=== PATIENT | female | born 1935 | race Caucasian/White ===

== ENCOUNTER 2024-12-06 12:19 | Inpatient (IN) | payer MEDICARE, OTHER, SELFPAY ==
[2024-12-06] VITALS (7 sets, daily range): BP systolic 145–166; BP diastolic 51–81; PULSE 65–79; RESP 14–18; TEMP 36.1–36.4; O2SAT 97–100; BMI 31.1
--- NOTE | ~2024-12-06 | XR_ITS ---
XR chest 1V portable Ordering provider: Darren Juan MD History: 89 years Female with . AMS . Comparison: None. FINDINGS: MEDIASTINUM: The cardiac silhouette is not enlarged. Prominent right hilum. LUNGS: No infiltrates, effusions or pneumothorax. OTHER: No free air under the diaphragm. Degenerative changes of the spine. IMPRESSION: No acute cardiopulmonary pathology. Reviewed, dictated and finalized at location A.
--- NOTE | ~2024-12-06 | CT_ITS ---
CT brain wo con Ordering provider: Darren Juan MD History: 89 years Female with . ALtered mental status . Comparison: June 03, 2006 Technique: CT of the head without contrast. Radiation reduction technique utilized.The dose-length pr oduct was 605.33 mGy-cm. FINDINGS: BRAIN PARENCHYMA AND CSF SPACES: Moderate leukoaraiosis and diffuse cortical atrophy. Moderate athero matous disease. No midline shift, mass effect or hemorrhage. The brain parenchyma and CSF spaces are otherwise normal. VISUALIZED PARANASAL SINUSES: Well aerated. MASTOIDS: Well aerated. BONES: The bones appear intact. SOFT TISSUES: Visualized nasopharynx is normal. Superficial soft tissues are normal. IMPRESSION: No acute intracranial findings. Reviewed, dictated and finalized at location A.
--- NOTE | ~2024-12-06 | MR_ITS ---
MR brain/brain stem wo/w con Ordering provider: Kamla Chacon MD History: 89 years Female with . TIA-suspected . Comparison: CT head performed yesterday. Technique: MRI brain was performed with and without contrast. 18 mL MultiHance was given IV. FINDINGS: BONES: Normal. CRANIOCERVICAL JUNCTION: normal. PITUITARY: Normal. MAJOR INTRACRANIAL VESSELS: Normal flow void. OPTIC NERVES AND CRANIAL NERVES VII AND VIII COMPLEXES: Grossly normal. BRAIN PARENCHYMA AND CSF SPACES: Mild nonspecific T2 white matter hyperintensities are seen in a vivian ateral periventricular and deep white matter distribution which are likely related to chronic ischemi c small vessel disease. Mild diffuse cortical atrophy. 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 The brainstem and cerebellum are normal. Multiple foci of susceptibility artifact is seen in the left upper frontal area and the left temporal lobe and terrie No extra axial fluid collections. Diffusion weighted and ADC mapping images reveal diffusion restriction the left cerebellar peduncle s uggestive of recent ischemia. No midline shift or mass effect. No abnormal contrast enhancement. PARANASAL SINUSES: Bilateral ethmoid sinus disease. MASTOIDS: Normal SUPERFICIAL/SURROUNDING SOFT TISSUES: Normal. IMPRESSION: 1. Highly suggestive lacunar acute infarct in the left cerebellar peduncle. Clinical correlation adv ised. 2. Multiple areas of susceptibility artifacts which may indicate old hemorrhagic changes versus calc ification. Tiny hemangiomas are less likely. Follow-up advised. 3. No abnormal enhancement. Reviewed, dictated and finalized at location A. IMPRESSION: 1. Highly suggestive lacunar acute infarct in the left cerebellar peduncle. Cl inical correlation advised. 2. Multiple areas of susceptibility artifacts which may indicate old hemorrhag ic changes versus calcification. Tiny hemangiomas are less likely. Follow-up ad vised. 3. No abnormal enhancement.
--- NOTE | 2024-12-06 12:21 | ECG_ITS ---
Test Date: 2024-12-06 12:54:23 Measurements Intervals [place] Rate: 68 P: 57 CO: 173 QRS: -21 QRSD: 101 T: 58 QT: 397 QTc: 424 Interpretive Statements SINUS RHYTHM VOLTAGE CRITERIA FOR LVH BASELINE ARTIFACT- II, III, AVR, AVL, AVF, V6 BORDERLINE ECG No previous ECG available for comparison Electronically Signed On 12-06-2024 13:00:48 CDT by Clyde Burnett D.O.
--- NOTE | 2024-12-06 12:27 | ED.NEUROSD ---
HPI - Neuro Symptoms/Deficit General Chief Complaint: Suspected CVA Stated Complaint: increased confusion, lethargic Time Seen by Provider: 12/06/24 12:27 Source: patient and EMS Mode of arrival: EMS History of Present Illness HPI Narrative: 89 years old white female, history of dementia, oriented times 2-3 as a baseline. Patient finished her breakfast today and set to watch TV at 9:00 a.m., intermittent napping, at 10:45 a.m. staff trying to get patient of the chair to walk to the bathroom and noticed that the patient slowly some words, and oriented to herself only. Patient currently on Eliquis Patient is asymptomatic, denying any complain. Related Data Home Medications ?Medication ?Instructions ?Recorded ?Confirmed ?Last Taken ?Type sertraline 100 mg tablet mg 06/28/19 Unknown History Allergies Allergy/AdvReac Type Severity Reaction Status Date / Time cyclobenzaprine Allergy Unknown Unknown Verified 06/28/19 10:01 hydrochlorothiazide Allergy Unknown SWELLING Unverified 10/03/08 11:45 triamterene Allergy Unknown SWELLING Unverified 10/03/08 11:45 hydrocodone AdvReac Unknown NAUSEA AND Unverified 10/03/08 11:45 HEADACHE Review of Systems Review of Systems: All systems reviewed & are unremarkable except as noted in HPI and below PMFSH Past Medical History Medical History History of depression Surgical History Surgical History History of appendectomy History of tonsillectomy History of hysterectomy Social History Social History Smoking status: Never smoker Gender identity (if verbalized by the patient): Female Exam Narrative: General appearance: Well-developed, well-nourished Skin: Normal color Head: Normocephalic, nontraumatic Eyes: Clear conjunctiva ENT: Oropharynx normal, ears normal, nose normal Neck: Supple, nontender Chest and respiratory: Airway patent, no respiratory distress, no accessory muscle use Heart: Regular rate/rhythm Abdomen: Soft, nontender, no organomegaly, quiet bowel sounds Vascular: Normal peripheral pulses, normal capillary refill. Musculoskeletal: Normal range of motion, nontender back Neurologic: Alert and oriented to her name only Course Vital Signs Vital signs: Vital Signs Temperature 36.4 C 12/06/24 12:32 Pulse Rate 70 12/06/24 12:32 Respiratory Rate 14 12/06/24 12:32 Blood Pressure 166/68 H 12/06/24 12:32 Pulse Oximetry 99 12/06/24 12:32 Oxygen Delivery Room Air 12/06/24 12:32 Temperature 36.4 C 12/06/24 13:11 Pulse Rate 65 12/06/24 13:12 Respiratory Rate 14 12/06/24 13:12 Blood Pressure 158/81 H 12/06/24 13:12 Pulse Oximetry 98 12/06/24 13:16 Oxygen Delivery Room Air 12/06/24 13:16 MDM - Neuro Symptoms/Deficit MDM Narrative Medical decision making narrative: Patient came to the ED with possible TIA/CVA Vital signs showing blood pressure 166/68 otherwise within normal limit Physical examination showed stroke scale is 1, patient is awake, oriented to her name only Differential diagnosis include TIA, CVA, electrolyte imbalance, dehydration, urinary tract infection, pneumonia Blood workup today includes CBC, CMP, troponin showed glucose of 296, otherwise insignificant abnormality EKG on arrival showed normal sinus rhythm at 68 beats per minute, voltage criteria for LVH, borderline EKG Chest x-ray showed no acute abnormality CT head without contrast showed no acute abnormality Diagnosis acute altered mental status, TIA, Admit to hospitalist Differential Diagnosis Differential diagnosis: Likely other (As above) Medical Records Attestation: I reviewed the patient's medical records. Lab Data Attestation: I reviewed the patient's lab results. 12/06/24 13:35 12/06/24 13:35 Labs: Lab Results 12/06/24 12/06/24 Range/Units 12:47 13:35 WBC 7.4 (4.5-10.0) K/mm3 RBC 4.28 (4.2-5.4) M/mm3 Hgb 12.9 (12.0-15.0) g/dL Hct 39.8 (37.0-47.0) % MCV 93.0 (80-100) fl MCH 30.1 (26-34) pg MCHC 32.4 (32-36) g/dl RDW 12.7 (11.5-14.5) % Plt Count 188 (150-375) k/mm3 MPV 9.8 (7.4-10.4) fl Immature Gran % (Auto) 0.4 (0-0.5) % Neut % (Auto) 60.6 (45.5-73.1) % Lymph % (Auto) 30.1 (18.3-44.2) % [place] % (Auto) 7.4 (2.6-8.5) % Eos % (Auto) 0.8 (0-4.4) % Baso % (Auto) 0.7 (0.2-1.2) % Lymph # (Auto) 2.23 (0.9-3.2) K/mm3 [place] # (Auto) 0.6 (0.1-0.6) K/mm3 Eos # (Auto) 0.1 (0-0.3) K/mm3 Baso # (Auto) 0.1 (0.0-0.1) K/mm3 Abs Immat Gran (auto) 0.03 (0.00-0.031) K/mm3 Absolute Neuts (auto) 4.5 (1.3-6.7) K/mm3 Absolute Nucleated RBC 0.000 (0.0-0.012) K/mm3 Nucleated RBC % 0.0 (0.0-0.2) % PT 12.9 (11.1-14.7) Seconds INR 1.0 APTT 22.7 (22.3-36.8) Seconds Sodium 135 L (137-145) mmol/L Potassium 4.8 (3.4-5.0) mmol/L Chloride 102 (98-107) mmol/L Carbon Dioxide 25 (22-30) mmol/L Anion Gap 8 (4-12) mmol/L BUN 17 (7-17) mg/dL Creatinine 0.99 (0.7-1.0) mg/dL Estim Creat Clear Calc 40 ml/min Estimated GFR 53 L (59 - ) Glucose 296 H (65-110) mg/dL POC Capillary Glucose 317 H (65-105) mg/dl Calcium 9.3 (8.4-10.2) mg/dL Total Bilirubin 0.6 (0.2-1.3) mg/dL AST 24 (14-36) U/L ALT 25 (6-35) U/L Alkaline Phosphatase 111 (38-126) U/L Troponin I < 0.012 (0.000-0.034) ng/mL Total Protein 6.5 (6.3-8.2) g/dL Albumin 3.7 (3.5-5.1) g/dL Imaging Data Radiologist's impression: Impressions Head CT 12/06/24 12:34 IMPRESSION: No acute intracranial findings. Chest X-Ray 12/06/24 13:29 IMPRESSION: No acute cardiopulmonary pathology. ECG Data EKG #1: ECG completion date: 12/06/24 Interpretation: Normal sinus rhythm at 68 beats per minute, LVH criteria, borderline EKG, no old EKG available for comparison Discharge Plan Discharge Clinical Impression: Brain TIA Patient Disposition: Still a Patient Condition: Stable Additional Instructions: Admit to hospitalist Patient Language: Portuguese Prescriptions: No Action sertraline 100 mg tablet amoxicillin-pot clavulanate [Augmentin] 875-125 mg tablet 1 tablet PO Q8H 10 Days Qty: 30 0RF amoxicillin-pot clavulanate [Augmentin] 875-125 mg tablet 1 tablet PO Q8H 10 Days Qty: 30 0RF Follow-up/Referrals: Shiv,MD Huseyin [Primary Care Provider] - Quality Stroke Date of last known normal: 12/06/24 Stroke Scale Stroke Scale 1: Stroke scale date:: 12/06/24 1a Level of consciousness: alert-0 1b Level of consciousness questions: answers one correctly-1 1c Level of consciousness commands: obeys both correctly-0 2 Best gaze: normal-0 3 Visual: no visual loss-0 4 Facial palsy: normal-0 5a Motor: left arm: no drift-0 5b Motor: right arm: no drift-0 6a Motor: left leg: no drift-0 6b Motor: right leg: no drift-0 7 Limb ataxia: absent-0 8 Sensory: normal-0 9 Best language: no aphasia-0 10 Dysarthria: normal-0 11 Extinction and inattention: no abnormality-0 Level:: 1
[2024-12-06 13:06] LABS: Glucose Point of Care 317 mg/dl (65-105)
[2024-12-06 13:41] LABS: Basophils Absolute Auto 0.1 K/mm3 (0.0-0.1); Basophils Percent Auto 0.7 % (0.2-1.2); Eosinophils Absolute Auto 0.1 K/mm3 (0-0.3); Eosinophils Percent Auto 0.8 % (0-4.4); Hematocrit 39.8 % (37.0-47.0); Hemoglobin 12.9 g/dL (12.0-15.0); Immature Granulocyte Absolute 0.03 K/mm3 (0.00-0.031); Immature Granulocyte Percent A 0.4 % (0-0.5); Lymphocytes Absolute Auto 2.23 K/mm3 (0.9-3.2); Lymphocytes Percent Auto 30.1 % (18.3-44.2); Mean Corpuscular HGB Conc 32.4 g/dl (32-36); Mean Corpuscular Hemoglobin 30.1 pg (26-34); Mean Platelet Volume 9.8 fl (7.4-10.4); Monocytes Absolute Auto 0.6 K/mm3 (0.1-0.6); Monocytes Percent Auto 7.4 % (2.6-8.5); Neutrophils Absolute Auto 4.5 K/mm3 (1.3-6.7); Neutrophils Percent Auto 60.6 % (45.5-73.1); Platelet Count Result 188 k/mm3 (150-375); Red Blood Count 4.28 M/mm3 (4.2-5.4); Red Cell Distribution Width 12.7 % (11.5-14.5); White Blood Count 7.4 K/mm3 (4.5-10.0)
[2024-12-06 13:52] LABS: Partial Thromboplastin Time 22.7 Seconds (22.3-36.8); Prothrombin Time 12.9 Seconds (11.1-14.7)
[2024-12-06 14:08] LABS: Alanine Aminotransferase 25 U/L (6-35); Albumin Level 3.7 g/dL (3.5-5.1); Alkaline Phosphatase 111 U/L (38-126); Anion Gap 8 mmol/L (4-12); Aspartate Amino Transferase 24 U/L (14-36); Bilirubin,Total 0.6 mg/dL (0.2-1.3); Blood Urea Nitrogen 17 mg/dL (7-17); Calcium 9.3 mg/dL (8.4-10.2); Carbon Dioxide 25 mmol/L (22-30); Chloride 102 mmol/L (98-107); Estimated CRCL calculation 40 ml/min; Estimated Glomerular Filt Rate 53; Glucose 296 mg/dL (65-110); Potassium 4.8 mmol/L (3.4-5.0); Sodium 135 mmol/L (137-145); Total Protein 6.5 g/dL (6.3-8.2)
[2024-12-06 14:20] LABS: Troponin I < 0.012 ng/mL (0.000-0.034)
[2024-12-06] MEDS: ASPIRIN 81 MG CHEWABLE TABLET 324 MG PO (15:10)
[2024-12-06 15:30] LABS: Add Urine Microscopic? NO; Appearance Urine Clear (Clear); Bilirubin Urine Negative (Negative); Blood Urine Negative (Negative); Color Urine Yellow (Yellow); Glucose Urine UA 3+ mg/dL (Negative); Ketones Urine Negative (Negative); Leukocyte Esterase Ur Negative LEU/UL (Negative); Nitrate Urine Negative (Negative); Protein Urine Negative (Negative); pH Urine 5.5 (5.0-9.0)
--- NOTE | 2024-12-06 16:33 | P.HP_ITS ---
H&P: HPI History of Present Illness Date/Time: 12/06/24 16:33 Chief Complaint: Altered mental status Narrative: 89-year-old female past medical history of depression and dementia oriented 2-3 at baseline presents the hospital with altered mental status. HPI is limited as patient is altered mental status. Staff noticed that the patient was having trouble with words and some slurring of words and only oriented to herself. HPI is limited as patient has issues with word finding. Patient has a slight facial droop. CBC is within normal limits, sodium 135, glucose 296, troponins negative, UA negative for infection, CT head shows no acute findings, chest x-ray shows no acute findings. Patient being admitted for stroke-like symptoms plan for MRI in the morning Review of Systems Review of Systems: ROS unobtainable: Yes unobtainable due to mental status PMFSH Past Medical History Medical History (Updated 12/06/24 @ 22:49 by Elana Guevara, AAKASH) Diabetes Dementia History of depression Surgical History Surgical History History of appendectomy History of tonsillectomy History of hysterectomy Social History Social History Smoking status: Never smoker Second hand tobacco smoke exposure: No Alcohol intake: never Substance use: never Gender identity (if verbalized by the patient): Female Spiritual care concerns: No Meds Home Medications and Allergies Home Medications ?Medication ?Instructions ?Recorded ?Confirmed ?Type apixaban 2.5 mg tablet (Eliquis) 2.5 mg PO Q12H 12/06/24 12/06/24 History cholecalciferol (vitamin D3) 1,250 50,000 unit PO WEEKLY 12/06/24 12/06/24 History mcg (50,000 unit) capsule duloxetine 30 mg capsule,delayed 30 mg PO DAILY 12/06/24 12/06/24 History release glipizide 5 mg tablet, extended 5 mg PO DAILY 12/06/24 12/06/24 History release 24 hr memantine 5 mg tablet 10 mg PO DAILY 12/06/24 12/06/24 History memantine 5 mg tablet (Namenda) 5 mg PO QPM 12/06/24 12/06/24 History Allergies Allergy/AdvReac Type Severity Reaction Status Date / Time cyclobenzaprine Allergy Unknown Unknown Verified 12/06/24 17:17 hydrochlorothiazide Allergy Unknown SWELLING Verified 12/06/24 17:17 triamterene Allergy Unknown SWELLING Verified 12/06/24 17:17 hydrocodone AdvReac Unknown NAUSEA AND Verified 12/06/24 17:17 HEADACHE Vital Signs Vital Signs - 24 hr 12/06/24 12:32 12/06/24 13:11 12/06/24 13:11 Temperature 97.6 F 97.6 F Pulse Rate 70 66 69 Respiratory Rate 14 18 Blood Pressure 166/68 H 158/81 H Pulse Oximetry 99 98 Oxygen Delivery Room Air 12/06/24 13:12 12/06/24 13:16 12/06/24 15:10 Temperature Pulse Rate 65 79 Respiratory Rate 14 14 Blood Pressure 158/81 H 156/64 H Pulse Oximetry 97 98 100 Oxygen Delivery Room Air Exam Narrative: General: well appearing, appears stated age. HEENT: normocephalic, atraumatic. Mucous membranes moist. EOMI, PERRLA, bilateral sclera anicteric, no conjunctival injection. Neck supple without JVD, lymphadenopathy, or bruit. Facial droop Respiratory: clear to ascultation bilaterally. No rales/rhonic/wheezes. Cardiovascular: Regular rate and rhythm, normal S1-S2 upon ascultation. No murmurs, rubs, or clicks. PMI is nondisplaced, capillary refill less than 3 second. Abdomen: Soft, round, no pulsatile masses, nondistended and nontender. No rebound, no guarding. No CVA tenderness, no hepatosplenomegaly. Bowel sounds present to all four quadrants. No high pitch or tinkling sounds, resonant to percussion. Extremities: No cyanosis, clubbing, or edema present. Pulses are palpable 2/2. Weaker in upper extremities however patient states she does not want to hurt me Neuro: Alert and orientated x 2. PERRLA. Cranial nerves 2-12 intact without focal deficit. Skin: Warm, dry, and intact, without rash, erythema, or lesion. Psych: pleasant, cooperative, normal speech, normal affect, no hallucinations, no dysarthia H&P: Results Labs Labs: Short CBC 12/06/24 Range/Units 13:35 WBC 7.4 (4.5-10.0) K/mm3 Hgb 12.9 (12.0-15.0) g/dL Hct 39.8 (37.0-47.0) % Plt Count 188 (150-375) k/mm3 BMP 12/06/24 13:35 Sodium 135 L Potassium 4.8 Chloride 102 Carbon Dioxide 25 BUN 17 Creatinine 0.99 Glucose 296 H Calcium 9.3 Cardiac Enzymes 12/06/24 Range/Units 13:35 Troponin I < 0.012 (0.000-0.034) ng/mL Liver Function 12/06/24 Range/Units 13:35 Total Bilirubin 0.6 (0.2-1.3) mg/dL AST 24 (14-36) U/L ALT 25 (6-35) U/L Alkaline Phosphatase 111 (38-126) U/L Albumin 3.7 (3.5-5.1) g/dL Urine 12/06/24 Range/Units 15:09 Urine Color Yellow (Yellow) Urine Appearance Clear (Clear) Urine pH 5.5 (5.0-9.0) Ur Specific [place] 1.030 (1.001-1.035) Urine Protein Negative (Negative) mg/dL Urine Glucose (UA) 3+ H (Negative) mg/dL Assessment and Plan Assessment and plan (1) Brain TIA: Code(s): G45.9 - Transient cerebral ischemic attack, unspecified Status: Acute Assessment and Plan: Neurology consulted MRI in the morning Telemetry monitoring Okay for diet Aspirin (2) Dementia: Code(s): F03.90 - Unspecified dementia, unspecified severity, without behavioral disturbance, psychotic disturbance, mood disturbance, and anxiety Status: Acute Assessment and Plan: Continue home medication (3) Diabetes: Code(s): E11.9 - Type 2 diabetes mellitus without complications Status: Acute Assessment and Plan: Hold home glipizide Accu-Cheks a.c. SSI Quality VTE Prophylaxis VTE prophylaxis: mechanical ordered and pharmacologic ordered Hospitalist MIPS Advance Care Plan I have confirmed that the patient's Advanced Care Plan is present, code status is documented, or surrogate decision maker is listed in patient medical record.: Yes Medication Reconciliation I have utilized all available resources to obtain, update and review the patients current medications (includes all prescriptions, OTC, herbals, cannabis, and nutritional supplements).: Yes
[2024-12-06 18:35] LABS: Glucose Point of Care 191 mg/dl (65-105)
[2024-12-06 19:44] LABS: Glucose Point of Care 268 mg/dl (65-105)
[2024-12-06] MEDS: APIXABAN 2.5 MG TABLET PO (23:34)
[2024-12-07] VITALS (10 sets, daily range): BP systolic 118–149; BP diastolic 70–73; PULSE 67–85; RESP 16–20; TEMP 36.8; O2SAT 92–99
[2024-12-07 05:35] LABS: Basophils Absolute Auto 0.1 K/mm3 (0.0-0.1); Basophils Percent Auto 0.7 % (0.2-1.2); Eosinophils Absolute Auto 0.1 K/mm3 (0-0.3); Eosinophils Percent Auto 1.5 % (0-4.4); Hematocrit 39.4 % (37.0-47.0); Hemoglobin 12.7 g/dL (12.0-15.0); Immature Granulocyte Absolute 0.03 K/mm3 (0.00-0.031); Immature Granulocyte Percent A 0.4 % (0-0.5); Lymphocytes Percent Auto 31.3 % (18.3-44.2); Mean Corpuscular HGB Conc 32.2 g/dl (32-36); Mean Corpuscular Volume 92.9 fl (80-100); Monocytes Absolute Auto 0.7 K/mm3 (0.1-0.6); Monocytes Percent Auto 9.3 % (2.6-8.5); Neutrophils Absolute Auto 4.2 K/mm3 (1.3-6.7); Neutrophils Percent Auto 56.8 % (45.5-73.1); Platelet Count Result 181 k/mm3 (150-375); Red Blood Count 4.24 M/mm3 (4.2-5.4); Red Cell Distribution Width 12.5 % (11.5-14.5); White Blood Count 7.4 K/mm3 (4.5-10.0)
[2024-12-07 05:53] LABS: Anion Gap 6 mmol/L (4-12); Blood Urea Nitrogen 12 mg/dL (7-17); Calcium 8.7 mg/dL (8.4-10.2); Carbon Dioxide 25 mmol/L (22-30); Chloride 106 mmol/L (98-107); Estimated CRCL calculation 43 ml/min; Estimated Glomerular Filt Rate 59; Glucose 150 mg/dL (65-110); Potassium 3.9 mmol/L (3.4-5.0); Sodium 137 mmol/L (137-145)
--- NOTE | 2024-12-07 06:33 | PC.NURSE ---
Patient removed telemetry and procedure writer reapplied four times. Patient removed it each time and became increasingly agitated. Patient is now sleeping with sitter at bedside.
[2024-12-07 08:17] LABS: Glucose Point of Care 167 mg/dl (65-105)
[2024-12-07] MEDS: MEMANTINE 5 MG TABLET 10 MG PO (09:21)
[2024-12-07] MEDS: APIXABAN 2.5 MG TABLET PO ×2 (09:21→20:26)
[2024-12-07] MEDS: DULoxetine HCL 30 MG CAPSULE.DR PO (09:21)
[2024-12-07] MEDS: ASPIRIN 81 MG CHEWABLE TABLET PO (09:21)
[2024-12-07 11:59] LABS: Glucose Point of Care 234 mg/dl (65-105)
[2024-12-07] MEDS: INSULIN ASPART (*BKC) 100 UNITS/ML SUB-Q ×2 (12:51→17:55)
[2024-12-07] MEDS: ATORVASTATIN 40 MG TABLET PO (14:46)
--- NOTE | 2024-12-07 15:55 | P.PNIM_ITS ---
Progress Note: A&P Assessment and Plan (1) Lacunar infarct, acute: Code(s): I63.81 - Other cerebral infarction due to occlusion or stenosis of small artery Status: Acute Assessment and Plan: Patient admitted for stroke-like symptoms with NIH to upon arrival to the emergency department all symptoms have resolved at time assessment, MRI showed small acute lacunar infarct * Neurology consulted but may not be able to see * Neuro check q.4 hour for the 1st 24 hours. * radiation monitor and telemetry continuously. * Echo with bubble study * PT/OT eval and treat. * Check for LDL and hemoglobin A1c. * Add statins 40 mg q.day, aspirin 81 mg, patient currently on prophylaxis Eliquis 2.5 mg b.i.d. however patient's family does report is severely costly patient unable to afford I do not see any history of atrial fibrillation diet reported she was on Eliquis for 6 months full dose for a previous DVT 10 years ago has been left on the prophylaxis therapy I will plan to get an echocardiogram and likely transition patient to Plavix 75 mg daily and discontinue Eliquis pending echo results otherwise will increase Eliquis to 5 mg b.i.d.. (2) Dementia: Code(s): F03.90 - Unspecified dementia, unspecified severity, without behavioral disturbance, psychotic disturbance, mood disturbance, and anxiety Status: Acute Assessment and Plan: * Continue Namenda (3) Diabetes: Code(s): E11.9 - Type 2 diabetes mellitus without complications Status: Acute Assessment and Plan: * Hold home glipizide * Accu-Cheks a.c. HS * SSI Low dose * Diabetic diet Plan Code status: Full code per patient DVT prophylaxis: Josué Stress ulcer prophylaxis: NA PT/OT notes: PT/OT evaluation pending Disposition: patient was admitted to the medical unit for stroke-like symptoms MRI did show a small acute lacunar infarct plan for echocardiogram with bubble study and PT/OT evaluation but patient will likely discharge back to assisted living memory care. Time Spent With Patient Time with patient: 15 - 25 minutes Subjective Date/time seen: 12/07/24 15:55 Interval history: patient was 89-year-old female admitted for stroke-like symptoms and CVA rule out. 12/07/2024: patient alert and oriented at baseline daughter is at bedside reports no further deficits patient with complete improvement denied any chest pain, shortness a breath, dizziness or visual changes. MRI did show a small lacunar infarct. Review of Systems Review of Systems: All systems reviewed & are unremarkable except as noted in HPI and below Exam Narrative: General: NAD HEENT: normocephalic, atraumatic. Respiratory: clear to auscultation Cardiovascular: RRR Abdomen: Soft, round, Neuro: Alert and orientated x 2. Cranial nerves 2-12 intact without focal deficit. most all extremities equally Skin: Warm, dry, and intact, Psych: pleasant, cooperative, Objective Data Vital Signs Vital Signs: Vital Signs - 24 hr 12/06/24 20:00 12/06/24 21:30 12/06/24 22:00 Temperature 96.9 F L Pulse Rate 77 76 Respiratory Rate 16 Blood Pressure 145/51 H Pulse Oximetry 97 Oxygen Delivery Room Air 12/07/24 00:00 12/07/24 04:00 12/07/24 06:00 Temperature Pulse Rate 71 67 Respiratory Rate 18 Blood Pressure Pulse Oximetry Oxygen Delivery 12/07/24 08:39 12/07/24 09:20 12/07/24 12:05 Temperature Pulse Rate 71 Respiratory Rate Blood Pressure Pulse Oximetry 99 Oxygen Delivery Room Air Room Air 12/07/24 12:09 12/07/24 12:50 12/07/24 14:00 Temperature 98.2 F Pulse Rate 82 Respiratory Rate 16 Blood Pressure 118/70 Pulse Oximetry 97 Oxygen Delivery Room Air Room Air Intake/Output Intake/Output: Intake & Output 12/04/24 12/05/24 12/06/24 12/07/24 23:59 23:59 23:59 23:59 Intake Total 120 356 Output Total 250 Balance -130 356 Meds/Results Medications: Active Medications Generic Name Dose Route Start Last Admin Trade Name Freq PRN Reason Stop Dose Admin Acetaminophen 650 mg 12/06/24 14:40 Acetaminophen 325 Mg Tablet PO Q4H PRN Mild Pain (1-3) or Fever Apixaban 2.5 mg 12/06/24 22:50 12/07/24 09:21 Apixaban 2.5 Mg Tablet PO 2.5 mg Q12HR JONA Administration Aspirin 81 mg 12/07/24 08:00 12/07/24 09:21 Aspirin 81 Mg Chewable Tablet PO 81 mg DAILY@0800 JONA Administration Atorvastatin Calcium 40 mg 12/07/24 13:00 12/07/24 14:46 Atorvastatin 40 Mg Tablet PO 40 mg DAILY JONA Administration Dextrose 12.5 gm 12/06/24 16:41 Dextrose 50% 25 Gm/50 Ml Syringe IV PUSH PRN PRN Hypoglycemia Protocol Duloxetine HCl 30 mg 12/07/24 09:00 12/07/24 09:21 Duloxetine Hcl 30 Mg Capsule.Dr PO 30 mg DAILY JONA Administration Glucagon 1 mg 12/06/24 16:41 Glucagon For Inj 1 Mg Vial IM PRN PRN Hypoglycemia Protocol Glucose 15 gm 12/06/24 16:41 Glucose Oral Gel 15 Gm Of Glucse In 37.5 Gm Tube PO PRN PRN Hypoglycemia Protocol Dextrose 1,000 mls @ 100 mls/hr 12/06/24 16:41 Dextrose 5% 1,000 Ml IVPB PRN PRN Hypoglycemia Protocol Insulin Aspart 2 - 5 units 12/06/24 17:00 12/07/24 12:51 Insulin Aspart (*Bkc) 100 Units/Ml SUB-Q 2 units TIDWM JONA Administration Protocol Memantine 10 mg 12/07/24 09:00 12/07/24 09:21 Memantine 5 Mg Tablet PO 10 mg DAILY JONA Administration Memantine 5 mg 12/07/24 18:00 Memantine 5 Mg Tablet PO QPM JONA Perflutren Lipid Microsphere 0 ml 12/07/24 12:57 Perflutren Lipid Microspheres 1.5 Ml Vial Diluted To 10 Ml Total Volume IV PUSH 12/10/24 12:57 ONCE PRN adequate visualization Protocol Radiology Results: ITS Impressions Head CT 12/06/24 12:34 IMPRESSION: No acute intracranial findings. Chest X-Ray 12/06/24 13:29 IMPRESSION: No acute cardiopulmonary pathology. Brain MRI 12/07/24 11:54 IMPRESSION: 1. Highly suggestive lacunar acute infarct in the left cerebellar peduncle. Clinical correlation advised. 2. Multiple areas of susceptibility artifacts which may indicate old hemorrhagic changes versus calcification. Tiny hemangiomas are less likely. Follow-up advised. 3. No abnormal enhancement. Labs Labs: Laboratory Results - last 24 hr 12/06/24 12/06/24 12/07/24 18:26 19:41 05:20 WBC 7.4 RBC 4.24 Hgb 12.7 Hct 39.4 MCV 92.9 MCH 30.0 MCHC 32.2 RDW 12.5 Plt Count 181 MPV 10.0 Immature Gran % (Auto) 0.4 Neut % (Auto) 56.8 Lymph % (Auto) 31.3 Williamson % (Auto) 9.3 H Eos % (Auto) 1.5 Baso % (Auto) 0.7 Lymph # (Auto) 2.30 Williamson # (Auto) 0.7 H Eos # (Auto) 0.1 Baso # (Auto) 0.1 Abs Immat Gran (auto) 0.03 Absolute Neuts (auto) 4.2 Absolute Nucleated RBC 0.000 Nucleated RBC % 0.0 Sodium 137 Potassium 3.9 Chloride 106 Carbon Dioxide 25 Anion Gap 6 BUN 12 D Creatinine 0.90 Estim Creat Clear Calc 43 Estimated GFR 59 Glucose 150 H POC Capillary Glucose 191 H 268 H Calcium 8.7 12/07/24 12/07/24 08:07 11:53 WBC RBC Hgb Hct MCV MCH MCHC RDW Plt Count MPV Immature Gran % (Auto) Neut % (Auto) Lymph % (Auto) Williamson % (Auto) Eos % (Auto) Baso % (Auto) Lymph # (Auto) Williamson # (Auto) Eos # (Auto) Baso # (Auto) Abs Immat Gran (auto) Absolute Neuts (auto) Absolute Nucleated RBC Nucleated RBC % Sodium Potassium Chloride Carbon Dioxide Anion Gap BUN Creatinine Estim Creat Clear Calc Estimated GFR Glucose POC Capillary Glucose 167 H 234 H Calcium Quality VTE Prophylaxis VTE prophylaxis: mechanical ordered and pharmacologic ordered -Patient's previous records reviewed on admission -ER notes reviewed in detail on admission -discussed all findings and current treatment plan with patient/Family/POA -Consultations reviewed for recommendations -Patient's disposition for safe discharge discussed with case making machine operator Dictation performed by [employer] direct speech recognition software, therefore flight hostess variants and typographical errors may occur. Hospitalist MIPS Advance Care Plan I have confirmed that the patient's Advanced Care Plan is present, code status is documented, or surrogate decision maker is listed in patient medical record.: Yes Medication Reconciliation I have utilized all available resources to obtain, update and review the patients current medications (includes all prescriptions, OTC, herbals, cannabis, and nutritional supplements).: Yes The patient is not eligible for med reconciliation; the patient is in a emergent medical situation where delaying treatment would jeopardize the patients health.: No
[2024-12-07 16:55] LABS: Glucose Point of Care 231 mg/dl (65-105)
[2024-12-07] MEDS: MEMANTINE 5 MG TABLET PO (17:23)
[2024-12-08] VITALS: PULSE 75
--- NOTE | 2024-12-08 | ECHO_ITS ---
Patient Info Name: Graciela Mancia Age: 89 years : 1935 Gender: Female Ht: 66 in Wt: 193 lbs BSA: 2.05 m2 HR: 75 bpm BP: 152 / 76 mmHg Technical Quality: Good Exam Date: 12/08/2024 12:03 PM Patient Status: I Admit Date: 12/07/2024 Exam Type: CA echo doppler w bubble study Complete two-dimensional, color flow and Doppler transthoracic echocardiogram is performed. Staff Referring Physician: Kamla Chacon MD Care Management Specialist: Arabella Ramos Attending Provider: Wilmer Feliciano Summary 1. Complete two-dimensional, color flow and Doppler transthoracic echocardiogram is performed. 2. Left ventricular chamber dimension is normal. 3. Left ventricular systolic function is normal, estimated at 65-70. 4. The left ventricular diastolic function is grade I diastolic dysfunction. 5. E/e' 6 is not elevated. 6. There is mild aortic valve regurgitation. 7. No pulmonary hypertension, estimated pulmonary arterial systolic pressure is 24 mmHg. Left Ventricle E/e' 6 is not elevated. Left ventricular chamber dimension is normal. Left ventricular systolic function is normal, estimated at 65-70. The left ventricular diastolic function is grade I diastolic dysfunction. Right Ventricle Right ventricular chamber dimension is normal. Right ventricular systolic function is normal. Left Atria Left atrial chamber dimension is normal. Right Atria Right atrial chamber dimension is normal. Atrial Septum Intact interatrial septum visualized by 2D and agitated saline imaging. Agitated saline injection with and without valsalva maneuver opacified right side cardiac chambers without shunt to left side cardiac chambers. Aortic Valve The aortic valve is trileaflet. There is no aortic valve stenosis. There is mild aortic valve regurgitation. Pulmonic Valve There is no pulmonic regurgitation. Mitral Valve There is no mitral valve stenosis. There is no mitral valve regurgitation. Tricuspid Valve There is no tricuspid valve regurgitation. No pulmonary hypertension, estimated pulmonary arterial systolic pressure is 24 mmHg. Pericardium/Pleural There is no pericardial effusion. Inferior Vena Cava Normal inferior vena cava with >50% collapse upon inspiration consistent with normal right atrial pressure, 5 mmHg. Aorta The aortic root size at the sinus of Valsalva is normal. Left Ventricular Outflow Tract Name Value Normal LVOT 2D LVOT Diameter 1.9 cm LVOT Doppler LVOT Peak Velocity 105 cm/s LVOT Peak Gradient 4 mmHg LVOT Mean Gradient 2 mmHg LVOT VTI 19 cm LVOT VTI/AV VTI Ratio 1.1 LVOT Stroke Volume 52 ml LVOT CO 3.7 l/min LVOT CI 1.8 l/min/m2 Pulmonic Valve Name Value Normal RVOT Doppler RVOT Peak Velocity 71 cm/s RVOT Peak Gradient 2 mmHg PV Doppler PV Peak Velocity 88 cm/s PV Peak Gradient 3 mmHg Mitral Valve Name Value Normal MV Diastolic Function MV E Peak Velocity 39 cm/s MV A Peak Velocity 89 cm/s MV E/A 0.4 MV Decel Time (PW) 225 ms Tricuspid Valve Name Value Normal TV Regurgitation Doppler TR Peak Velocity 216 cm/s TR Peak Gradient 13 mmHg Estimated PAP/RSVP RA Pressure 5 mmHg <=5 PA Systolic Pressure 24 mmHg <36 RV Systolic Pressure 24 mmHg <36 Aorta Name Value Normal Ascending Aorta Ao Root Diameter (MM) 3.4 cm Ao Root Diam Index (MM) 1.6 cm/m2 Aortic Valve Name Value Normal AV Doppler AV Peak Velocity 105 cm/s AV Peak Gradient 4 mmHg AV Mean Gradient 2 mmHg AV VTI 17 cm AV Area (Cont Eq VTI) 3.0 cm2 >=3.0 AV Area (Cont Eq Kevin) 2.7 cm2 AV DI (Kevin) 1.00 AV Regurgitation 2D LVOT Area 2.7 cm2 Ventricles Name Value Normal LV Dimensions 2D/MM IVS Diastolic Thickness (2D) 0.8 cm 0.6-1.0 LVID Diastole (2D) 4.4 cm 3.8-5.2 LVIW Diastolic Thickness (2D) 1.1 cm 0.6-0.9 LVID Systole (2D) 2.6 cm 2.2-3.5 LVOT Diameter 1.9 cm LV Mass (2D Cubed) 139.85 g 67.00-162.00 LV Mass Index (2D Cubed) 68 g/m2 43-95 Relative Wall Thickness (2D) 0.50 <=0.42 LV Fractional Shortening/Ejection Fraction 2D/MM LV Fractional Shortening (2D) 41 % 27-45 LV EF (2D Teichholz) 72 % LV Diastolic Volume (4C MOD) 56 ml LV EF (4C MOD) 67 % LV Diastolic Volume (2C MOD) 44 ml LV EF (2C MOD) 69 % LV Diastolic Volume (BP MOD) 50 ml 46-106 LV Diastolic Volume Index (BP MOD) 24 ml/m2 29-61 LV Systolic Volume (BP MOD) 16 ml 14-42 LV Systolic Volume Index (BP MOD) 8 ml/m2 8-24 LV EF (BP MOD) 67 % 54-74 LV Diastolic Length (4C) 7.1 cm LV Systolic Length (4C) 5.3 cm LV Stroke Volume (4C MOD) 37 ml LV CO (BP MOD) 0.0 l/min LV CI (BP MOD) 0.0 l/min/m2 Atria Name Value Normal LA Dimensions LA Dimension (MM) 3.8 cm 2.7-3.8 LA Volume (4C A-L) 41 ml LA Volume (BP A-L) 37 ml RA Dimensions RA Systolic Major [place] Length (4C) 4.8 cm 2.2-2.8 RA Area (4C) 11.9 cm2 <=18.0 Report Signatures Amended by Clyde Burnett DO on 12/11/2024 03:41 PM
[2024-12-08 00:36] LABS: Glucose Point of Care 236 mg/dl (65-105)
[2024-12-08 04:00] VITALS: PULSE 72
[2024-12-08 05:17] VITALS: BP 152/76; PULSE 76; RESP 16; TEMP 36.5; O2SAT 96
[2024-12-08 05:51] LABS: Hematocrit 38.2 % (37.0-47.0); Hemoglobin 12.6 g/dL (12.0-15.0); Mean Corpuscular Hemoglobin 30.4 pg (26-34); Mean Platelet Volume 10.1 fl (7.4-10.4); Platelet Count Result 194 k/mm3 (150-375); Red Blood Count 4.15 M/mm3 (4.2-5.4); Red Cell Distribution Width 12.6 % (11.5-14.5)
[2024-12-08 06:03] LABS: Hemoglobin A1C 9.6 % (<5.7)
[2024-12-08 06:39] LABS: Alanine Aminotransferase 19 U/L (6-35); Albumin Level 3.3 g/dL (3.5-5.1); Alkaline Phosphatase 94 U/L (38-126); Anion Gap 5 mmol/L (4-12); Aspartate Amino Transferase 25 U/L (14-36); Bilirubin,Total 1.1 mg/dL (0.2-1.3); Blood Urea Nitrogen 16 mg/dL (7-17); Calcium 8.8 mg/dL (8.4-10.2); Carbon Dioxide 24 mmol/L (22-30); Chloride 105 mmol/L (98-107); Cholesterol 177 mg/dL (0-200); Estimated CRCL calculation 43 ml/min; Estimated Glomerular Filt Rate 58; Glucose 185 mg/dL (65-110); HDL Direct 52 mg/dL; LDL Cholesterol Direct 88 mg/dL; Potassium 4.1 mmol/L (3.4-5.0); Sodium 134 mmol/L (137-145); Total Protein 6.2 g/dL (6.3-8.2); Triglycerides 128 mg/dL (<150)
[2024-12-08 08:00] VITALS: PULSE 79
[2024-12-08 08:36] LABS: Glucose Point of Care 206 mg/dl (65-105)
[2024-12-08] MEDS: INSULIN ASPART (*BKC) 100 UNITS/ML SUB-Q ×2 (09:36→11:53)
[2024-12-08] MEDS: APIXABAN 2.5 MG TABLET PO (09:38)
[2024-12-08] MEDS: ATORVASTATIN 40 MG TABLET PO (09:39)
[2024-12-08] MEDS: ASPIRIN 81 MG CHEWABLE TABLET PO (09:39)
[2024-12-08] MEDS: MEMANTINE 5 MG TABLET 10 MG PO (09:39)
[2024-12-08] MEDS: DULoxetine HCL 30 MG CAPSULE.DR PO (09:40)
--- NOTE | 2024-12-08 11:13 | PC.NURSE ---
RN returned phone call to [facility] and provided an update to Elana.
[2024-12-08 11:42] LABS: Glucose Point of Care 312 mg/dl (65-105)
[2024-12-08 12:00] VITALS: PULSE 75
--- NOTE | 2024-12-08 13:52 | P.DS_ITS ---
DS: Admitting Diagnosis Discharge Date 03/10/2025 Admitting Diagnosis stroke-like symptoms DS: Discharge Diagnosis Discharge Diagnosis (1) Lacunar infarct, acute: Code(s): I63.81 - Other cerebral infarction due to occlusion or stenosis of small artery Status: Acute (2) Dementia: Code(s): F03.90 - Unspecified dementia, unspecified severity, without behavioral disturbance, psychotic disturbance, mood disturbance, and anxiety Status: Acute (3) Diabetes: Code(s): E11.9 - Type 2 diabetes mellitus without complications Status: Acute DS: Summary Hospital Course Reason for hospitalization: acute lacunar infarct Hospital Course: Admission 89-year-old female past medical history of depression and dementia oriented 2-3 at baseline presents the hospital with altered mental status. HPI is limited as patient is altered mental status. Staff noticed that the patient was having trouble with words and some slurring of words and only oriented to herself. HPI is limited as patient has issues with word finding. Patient has a slight facial droop. In the ED: CBC is within normal limits, sodium 135, glucose 296, troponins negative, UA negative for infection, CT head shows no acute findings, chest x- ray shows no acute findings. Hospital Course: Patient was admitted for stroke-like symptoms, MRI showed a small acute Lacunar infarct. Patient symptoms had completely resolved with no new deficits at was at her baseline. Echo with no shunting and patient with no history of AFIB. Patient was started on Atorvastatin and I switched her eliquis do to cost and no HX of AFIB to Plavix and ASA with dual therapy for 21 days and that she could stop Plavix after 21 days and do only ASA. Patient was seen in no acute distress or with complaints at time of discharge. Patient seen by PT/OT at baseline with walker she was discharged back to her memory care facility transported by [id number]. Status at Discharge Functional status at discharge: uses cane/walker Overall status at discharge: patient is back to baseline Time Spent with Patient Time attestation: Total time spent providing and/or coordinating discharge services: Time spent: Greater than 30 minutes Exam Narrative: General: NAD HEENT: normocephalic, atraumatic. Respiratory: clear to auscultation Cardiovascular: RRR Abdomen: Soft, round, Neuro: Alert and orientated x 2. Cranial nerves 2-12 intact without focal deficit. most all extremities equally Skin: Warm, dry, and intact, Psych: pleasant, cooperative DS: Data Data Completed and Pending Labs on day of discharge: Labs from last 24 hours 12/08/24 12/08/24 12/08/24 11:38 08:15 05:24 WBC 8.0 RBC 4.15 L Hgb 12.6 Hct 38.2 MCV 92.0 MCH 30.4 MCHC 33.0 RDW 12.6 Plt Count 194 MPV 10.1 Sodium 134 L Potassium 4.1 Chloride 105 Carbon Dioxide 24 Anion Gap 5 BUN 16 Creatinine 0.91 Estim Creat Clear Calc 43 Estimated GFR 58 L Glucose 185 H POC Capillary Glucose 312 H 206 H Hemoglobin A1c 9.6 H Calcium 8.8 Total Bilirubin 1.1 AST 25 ALT 19 Alkaline Phosphatase 94 Total Protein 6.2 L Albumin 3.3 L Triglycerides 128 Cholesterol 177 LDL Cholesterol Direct 88 HDL Direct 52 12/07/24 12/07/24 19:51 16:53 WBC RBC Hgb Hct MCV MCH MCHC RDW Plt Count MPV Sodium Potassium Chloride Carbon Dioxide Anion Gap BUN Creatinine Estim Creat Clear Calc Estimated GFR Glucose POC Capillary Glucose 236 H 231 H Hemoglobin A1c Calcium Total Bilirubin AST ALT Alkaline Phosphatase Total Protein Albumin Triglycerides Cholesterol LDL Cholesterol Direct HDL Direct Discharge Plan Discharge Attending physician on discharge: Jesus Martini Consulting providers: Aliyah Sharpe Discharging Clinician: Aliyah Sharpe Anticipated Discharge Date/Time: 12/08/24 13:41 Patient Disposition: NH Longterm/Asst Living Activity: as tolerated Diet: diabetic Discharge Instructions: 1). Lacunar infarct (Stroke) * I have prescribed Plavix and Aspirin for 21 days as dual therapy after 21 days you may transition to just aspirin daily * I have also discontinued your Eliquis at this time since there is no history or evidence of atrial fibrillation * I have also prescribed atorvastatin please take as indicated * if stroke-like symptoms return please seek immediate medical attention remember FACE 2). Diabetes * I have resumed your glipizide but also added metformin due to hyperglycemia and elevated A1c of 9.6 * please continue to monitor your blood sugars at home * you will need a follow-up A1c in 3 months How can you care for yourself at home? ? Keep track of any new symptoms or changes in your symptoms. ? Rest until you feel better. ? Be safe with medicines. Take your medicines exactly as prescribed. Call your doctor if you think you are having a problem with your medicine. ? Do not drive after taking a prescription pain medicine. ? Ensure to follow-up with primary care physician as indicated and provide updated medication list provided to you at discharge. When should you call for help? Call 911 anytime you think you may need emergency care. For example, call if: ? You passed out (lost consciousness). Call your doctor now or seek immediate medical care if: ? You have new symptoms like fever, difficulty breathing, Chest pain, vomiting, or rash. ? You have new or different pain. ? You are confused and are having trouble thinking clearly. ? Your symptoms are getting worse. Watch closely for changes in your health, and be sure to contact your doctor if: ? You do not get better as expected. Patient Instructions: Antibiotic Form, Apixaban (By mouth) Patient Language: Urdu Stand Alone Forms: General Discharge Information Follow-up/Referrals: Nicola,MD Rama [Primary Care Provider] - 2 Weeks Discharge Medications: New atorvastatin 40 mg Tablet 40 mg PO DAILY Qty: 30 0RF aspirin [Children's Aspirin] 81 mg Tablet,Chewable 81 mg PO DAILY@0800 Qty: 30 0RF metformin 500 mg tablet 500 mg PO DAILY Qty: 30 0RF clopidogrel [Plavix] 75 mg tablet 75 mg PO DAILY Qty: 30 0RF Continued glipizide 5 mg tablet extended release 24hr 5 mg PO DAILY memantine 5 mg tablet 10 mg PO DAILY duloxetine 30 mg capsule,delayed release(DR/EC) 30 mg PO DAILY cholecalciferol (vitamin D3) 1,250 mcg (50,000 unit) capsule 50,000 unit PO WEEKLY Rx Instructions: Take every Wednesday memantine [Namenda] 5 mg tablet 5 mg PO QPM Discontinued Eliquis 2.5 mg tablet 2.5 mg PO Q12H Date of admission: 12/07/24 15:03 Primary Care Provider: AddyRama Admitting Provider: Wilmer Feliciano Attending physician on admission: Wilmer Feliciano Condition: Stable Quality VTE Prophylaxis VTE prophylaxis: mechanical ordered and pharmacologic ordered Hospitalist MIPS Heart Failure (Exclusion) Patient has history of Heart Transplant or Left Ventricular Assistive Device?: No IF YES, STOP HERE Heart Failure (Qualifier) Patient has current or prior documentation of LVEF less than or equal to 40%, or mod/servere depressed LVSF?: No IF NO, STOP HERE
[2024-12-08 14:00] VITALS: BP 123/55; PULSE 75; RESP 18; TEMP 36.3; O2SAT 95
--- NOTE | 2024-12-08 15:58 | PC.NURSE ---
RN was discharging patient and patient's family member asked RN to re-evaluate patient because she was acting different. RN took vitals and did a stroke assessment on her and they were normal. Patient is BSL AOX1 and is AOX1 now. During assessment patient was swatting and swinging with both arms. RN had another RN look at her and they agreed. Patient just seems lethargic and going through a behavioral episode to RNs. Patient's family member does not live around here so does not often see her to know if this is normal. Family member called other family member and was told she is typically difficult to deal with when she is sleepy or sleeping. RN contacted METAL SHEET ROLLER OPERATOR Aliyah to inform her and she stated she was okay with keeping her an additional night if needed, or could get an ambulance rather than privately owned car to [place].
--- NOTE | 2024-12-08 17:21 | PC.NURSE ---
Patient is getting physical with tech and aids. RN called provider to get something to help relax patient and tried to call [place] to give them an update on patient, but did not answer.
== END 2024-12-08 19:58 | DRG 66 ==
LOC: ANHED 14:39 → ANH3MED 15:11
PROVIDERS: Emergency Medicine; General Practice; Nurse Practitioner Gerontology; Admitting Provider Internal Medicine; Emergency Provider Emergency Medicine; PCP Family Medicine; Visit Provider Nurse Practitioner Family
DX: I63.81 Other cerebral infarction due to occlusion or stenosis of small artery (principal); E11.9 Type 2 diabetes mellitus without complications; F03.90 Unspecified dementia, unspecified severity, without behavioral disturbance, psychotic disturbance, mood disturbance, and anxiety; F32.A Depression, unspecified; Z79.01 Long term (current) use of anticoagulants
CPT/HCPCS: 36415; 70450; 70553; 71045; 80048; 80053; 80061; 81003; 82948; 83036; 84484; 85025; 85027; 85610; 85730; 93005; 93306; 96372; 96374; 96375; 97161; 97165; 99285; A9270; A9577; G0378; J1815; J2359